=== PATIENT | female | born 1950 | race Caucasian/White ===

== ENCOUNTER 2019-08-19 12:53 | Outpatient (CLI) | payer MEDICARE, OTHER, SELFPAY ==
--- NOTE | 2019-08-19 12:59 | ECG_ITS ---
Measurements Intervals [place] Rate: 81 P: 26 [place]: 166 QRS: 25 QRSD: 92 T: -2 QT: 355 QTc: 412 Interpretive Statements SINUS RHYTHM VENTRICULAR PREMATURE COMPLEX ST-T WAVE ABNORMALITY IN ANTEROLATERAL LEADS- CONSIDER ISCHEMIA BASELINE ARTIFACT- I, II, III, AVR, AVL, AVF ABNORMAL ECG Electronically Signed On 08-19-2019 14:16:27 DIRECT[employer] OF [employer] by Dickson Sheffield D.O.
== END 2019-08-19 12:54 | disposition home or self-care (01) ==
LOC: ANHSURGERY 12:59
PROVIDERS: PCP Internal Medicine; Visit Provider Orthopaedic Surgery
DX: I10 Essential (primary) hypertension (principal); R94.31 Abnormal electrocardiogram [ECG] [EKG]
CPT/HCPCS: 93005

== ENCOUNTER 2019-08-31 02:18 | Day surgery (SDC) | payer MEDICARE, OTHER, SELFPAY ==
[2019-08-17 15:17] VITALS: BMI 33.8
[2019-08-31] VITALS (11 sets, daily range): BP systolic 120–144; BP diastolic 71–90; PULSE 84–101; RESP 16–24; TEMP 36.2–36.4; O2SAT 91–99
--- NOTE | 2019-08-31 07:29 | WPDHPUPDATE1 ---
History and Physical Update Update Date/Time: 08/31/19 07:29 History and Physical has been reviewed, including an updated exam of the patient. There are NO changes in the patient's condition. Risks, benefits, and alternatives have been discussed and questions answered. Patient agrees to proceed with procedure.
[2019-08-31] MEDS: LACTATED RINGERS 1,000 ML 30 ML IV CONT ×2 (08:39→10:35)
--- NOTE | 2019-08-31 08:59 | WPDANESEPPF ---
Anes - Initial Pre Proc Eval Procedure: Operation Date: 08/31/19 09:00 Proposed Procedures p Right Shoulder Arthroscopic Rotator Cuff Repair, Labral Debridement - Andreas Wyman MD Date/Time: 08/31/19 08:59 Surgeon: Andreas Wyman MD Pre Op Diagnosis: Right Shoulder Pain Patient Data Age: 69 Gender: F Height: 5 ft 4 in Weight: 89.9 kg Last Vital Signs Temp 36.4 C L 08/31/19 07:11 Pulse 91 08/31/19 07:11 Resp 16 08/31/19 07:11 BP 144/75 H 08/31/19 07:11 Pulse Ox 99 08/31/19 07:11 Allergies Allergy/AdvReac Type Severity Reaction Status Date / Time No Known Allergies Allergy Verified 08/31/19 08:19 Home Medications Medication Instructions Recorded Confirmed Type cholecalciferol (vitamin D3) 100 mcg PO DAILY 08/17/19 08/31/19 History cyanocobalamin (vitamin B-12) 3,000 mcg PO DAILY 08/17/19 08/31/19 History inulin [Fiber Gummies] 4 g PO DAILY 08/17/19 08/31/19 History losartan 50 mg PO DAILY 08/17/19 08/31/19 History pgpjbduy-chu-ilii-FA-lutein 1 tablet PO DAILY 08/17/19 08/31/19 History [Multivitamin Women 50 Plus] pantoprazole 40 mg PO QAM 08/17/19 08/31/19 History Patient hx anesthesia problems: none Family hx anesthesia problems: none Anes - Eval Final PreProcedure Day of Procedure 08/31/19 08:59 Patient weight: obese Heart: regular rate and rhythm Lungs: clear to auscultation Airway: Mallampati scale class II Neurological: alert and oriented Last oral intake: >/= 8 hours ASA classification: III Emergent: no Anesthetic plan: proceed Anesthesia type and monitoring: general ETT and standard monitoring Informed Consent: The patient's anesthetic plan and its attendant risks and benefits were discussed with the patient/family/POA. Questions were solicited and answers provided to the satisfaction of the patient/family/POA.
--- NOTE | 2019-08-31 08:59 | WPDANESPNB ---
Anes - Peripheral Nerve Block Date/Time: 08/31/19 08:59 I have discussed with the patient/family/POA the placement of a peripheral nerve block for post-operative pain management, including associated risks, benefits, complications, and side effects. Alternative methods of post-operative analgesia were detailed. Questions were solicited and answers provided to the satisfaction of the patient/family/POA. Time-Out: A pre-procedural Time-Out was completed immediately before starting the procedure and confirmed: Patient Identification, Site, Procedure, Patient Position and the Availability of Requisite Equipment. Clinical Indications: Acute post-operative pain management requested by the operative surgeon. Nerve Block Insertion Note Anes-nerve block: interscalene right Patient position: supine Skin prep: chlorhexidine Needle: 22 gauge, stimulating, insulated echogenic needle. Needle length: 50 mm Technique: ultrasound Injectate: bupivacaine 0.5% with epi 5 mcg/ml (30) and dexamethasone (mg) (8) Observations: tolerated well Complications: none Procedure start time:: 0850 Procedure end time:: 0900
--- NOTE | 2019-08-31 09:10 | WPDHPUPDATE1 ---
History and Physical Update Update Date/Time: 08/31/19 09:10 History and Physical has been reviewed, including an updated exam of the patient. There are NO changes in the patient's condition. Risks, benefits, and alternatives have been discussed and questions answered. Patient agrees to proceed with procedure. Plan: Right shoulder rotator cuff repair
[2019-08-31] MEDS: ceFAZolin 2 GM/D5W 50 ML 2 GM/50 ML BAG IVPB (09:19)
[2019-08-31] MEDS: BUPIVACAINE/EPINEPHRINE 0.5% 10 ML VIAL 20 ML INFILTRATE (10:02)
--- NOTE | 2019-08-31 10:44 | PM.PROC ---
Procedure Note - Detailed Date of procedure: 08/31/19 Pre-op diagnosis: Right Shoulder Pain RIGHT RTC tear, SLAP tear Post-op diagnosis: same Procedure performed: 1. RTC-R 2. Labral debridement 3. bicep tenotomy 4. SAD 5. chondroplasty humerus/glenoid 6. Injection Description of procedure: Ms. nguyen was properly identified in the preoperative holding area, signed consent reviewed, all questions were thoroughly answered, my initials were placed on the lateral aspect of the upper right shoulder. She was taken to the operating room where she was placed in a supine position and general anesthetic was administered. A preoperative nerve block had been administered by Anesthesia. She was then placed up in a beach chair type positioning with care taken to paddle bony prominences. The right upper extremity is elevated, prepped and draped in stroke a circumferential manner,. A brief pause was held identifying this as the correct patient extremity procedure to be performed carried out. All the room were in agreement. All necessary implants were in the room immediately available. All sponge and needle counts were verified to be correct. Standard posterolateral arthroscopic portal was established and utilizing spinal needle for localization anterior lateral arthroscopic portal established. Diagnostic arthroscopy was performed with following findings: Degenerative fraying and tearing to the anterior superior labrum with some acute appearing longitudinal tear to the biceps tendon, high-grade near full-thickness tear to the anterior portion of the supraspinatus at its insertion. A 4.0 mm shaver was introduced and debridement of the anterior labrum was done down to good stable labral tissue. There was noted to be some grade 3 to grade 4 changes of the articular cartilage on the humeral head with some loose flap type cartilage. The 4.0 mm shaver was utilized with chondroplasty technique to debride this unstable articular cartilage down to good stable base of cartilage. Some grade 3 changes were noted the anterior aspect of the glenoid which were able to be easily debrided down with chondroplasty technique utilizing the 4.0 mm shaver as well. The biceps tendon was released at its biceps anchor and dissected to the level of the transverse bicipital ligament. The shoulder was placed through a full range of motion there was a tear noted the superior labrum but this was stable and did not impinge during full passive range of motion. There was abducted and externally rotated such that the rotator cuff could be easily visualized. There is a high-grade tear noted of the anterior supraspinatus utilizing the 4.0 mm shaver this was debrided down to good normal appearing tendinous tissue. The bone just lateral to the articular margin was debrided down to good subchondral bone for repair of the rotator cuff. The arthroscope scope and the shaver placed in subacromial space. A subacromial decompression was performed 1st with the subacromial bursa and shaving to 3 mm of bone off the lateral aspect of the acromion to improve visualization. The rotator cuff was able to be fully visualized from the acromial side. The thinned area of the supraspinatus was palpated with the shaver and gently debrided resulting in a full-thickness tear. A lateral incision was made and soft tissue dissection was carried through the deltoid to level the rotator cuff tear. A single 2.9 mm juggernaut anchor was placed just lateral to the prepared bleeding bony bed. Sutures are placed 2 posteriorly to anteriorly 1 1 cm medial to the tear and 1 5 mm medial to the tear. The sutures were then tied in a horizontal mattress fashion reapproximating the supraspinatus to its insertion and compressing it nicely against the prepared bleeding bony bed. My index finger was placed in subacromial space the shoulders place a full range of motion with no significant impingement. The rotator cuff repairs able to be easily
--- NOTE | 2019-08-31 13:09 | SUR.PHASEII ---
1310; PT AWAKE AND ALERT. DENIES PAIN OR NAUSEA. DRESSED AND INSTRUCTIONS GIVEN. WAITING ON RIDE.
== END 2019-08-31 13:14 | disposition home or self-care (01) ==
PROVIDERS: PCP Internal Medicine; Visit Provider Orthopaedic Surgery
PROC: (CPT 29805; principal; 2019-08-31 09:00)
DX: M75.101 Unspecified rotator cuff tear or rupture of right shoulder, not specified as traumatic (principal); M75.81 Other shoulder lesions, right shoulder; G89.18 Other acute postprocedural pain; E66.9 Obesity, unspecified; Z68.34 Body mass index [BMI] 34.0-34.9, adult
CPT/HCPCS: 29827; 29826; 29823; 64415; C1713; J0131; J0330; J0690; J1100; J1885; J2250; J2405; J2704; J3010; J7120